=== PATIENT | male | born 1940 | race Caucasian/White ===

== ENCOUNTER → 2017-04-27 | Outpatient (CLI) | payer MEDICARE, OTHER ==
[~2017-04-27] MED LIST: ASPIRINEC PO; CIPRO PO; COLACE PO; COREG6.25 MG PO; DHA; ELIQUIS5 MG PO; GLUCOSAMINE CHON; LORTAB 7.5-5001 TAB PO; MULTI-DAY1 TAB PO; MULTI-VIT/MIN P1 TAB PO; PRILOSEC PO; UROXATRAL10 MG PO; VIT C PO; VITAMIN D 4001 UDTAB PO; ZESTRIL10 M1 PO; ZOCOR PO
--- NOTE | ~2017-04-27 | MR17 ---
[facility] A Service of [facility] & [facility] RADIOLOGY TEXT RESULTS PATIENT: JAYDON LINO LOCATION: [facility] : 38 UNIT #: [id number] AGE: [address]: Jung Rodgers MD SEX: M ORDER DR: [id number] [address] [address] [id number] O MR#: [id number] Acc #: [id number] NAME: JAYDON LINO : 1940 SEX: M STUDY DATE/TIME: 04/27/2017 14:10 UNIT: [facility] ROOM: STUDY DESCRIPTION: MR Brain WWo Contrast Attending Physician: Jung Rodgers M.D. Referring Physician: Jung Rodgers M.D. Ordering Physician: Jung Rodgers M.D. Primary Care Physician: Jung Rodgers M.D. MRI CENTER REPORT This report is preliminary unless electronic signature is present. EXAM MRI of the brain with and without contrast dated 04/27/2017. COMPARISON None. HISTORY Increased vertigo for the last 6-8 weeks, especially when patient is supine. FINDINGS Multisequence multiplanar imaging of the brain was obtained with and without contrast. GFR measured greater than 60. 19 mL of MultiHance was administered intravenously. No acute stroke, space-occupying intracranial mass, mass effect, midline shift or hydrocephalus. There are scattered hyperintense T2-signal lesions noted in the brain involving the periventricular (particularly biparietal) and subcortical (particularly bifrontal) white matter. No acute stroke, enhancing solid mass, hydrocephalus, hemorrhage or midline shift. Vascular flow voids of the major cerebral arteries and dural venous sinuses are patent without occlusion. Thick slices through the sella with the pituitary gland, pineal region are unremarkable. Mild disc bulge is noted at C3-4 with mild mass effect on the adjacent thecal sac. S-shaped nasal septal deviation is noted with mild paranasal sinus mucosal thickening. Status post bilateral cataract surgery. IMPRESSION 1. No acute stroke, space-occupying intracranial mass, mass effect, midline shift or hydrocephalus. 2. Scattered few hyperintense T2-signal lesions are noted in the white matter, likely related to minimal chronic microvascular ischemic change or migraine based on age and statistics. [facility] A Service of [facility] & [facility] RADIOLOGY TEXT RESULTS PATIENT: JAYDON LINO [id number] : 38 UNIT #: [id number] AGE: [address]: Jung Rodgers MD SEX: M ORDER DR: Dictated by... Bryan Metcalf M.D. THIS IS AN ELECTRONICALLY VERIFIED REPORT Bryan Metcalf M.D. at 04/28/2017 4:29 PM CPR/pc TD: 04/28/2017 12:02 JOB #: [id number] MRI CENTER REPORT Page 1 of 1
--- NOTE | ~2017-04-27 | US37 ---
[facility] A Service of [facility] RADIOLOGY TEXT RESULTS PATIENT: JAYDON LINO [id number] [birth year] UNIT #: [id number] AGE: [address]: Jung Rodgers MD SEX: M ORDER DR: [id number] [address] [address] [id number] O MR#: [id number] Acc #: [id number] NAME: JAYDON LINO : 1940 SEX: M STUDY DATE/TIME: 04/27/2017 14:40 UNIT: [facility] ROOM: STUDY DESCRIPTION: US Carotid W/Doppler Bilateral Attending Physician: Jung Rodgers M.D. Referring Physician: Jung Rodgers M.D. Ordering Physician: Jung Rodgers M.D. Primary Care Physician: Jung Rodgers M.D. MEDICAL IMAGING REPORT This report is preliminary unless electronic signature is present. DATE OF EXAMINATION 04/27/2017 EXAMINATION Bilateral carotid Duplex. CLINICAL HISTORY Vertigo. FINDINGS There is patent flow seen throughout the right common carotid, internal carotid and external carotid arteries. At the right carotid bifurcation, there is homogeneous irregular echogenic plaque, extending to the internal and external carotid arteries. The right common carotid artery peak velocity is 67 cm/sec. The right internal carotid artery peak systolic over end diastolic velocities are: Proximal 51/13 cm/sec, mid 65/19 cm/sec, distal 70/21 cm/sec. The right external carotid artery peak velocity is 66 cm/sec and vertebral artery 41 cm/sec. The right ICA:CCA ratio is 1.0. There is patent flow seen throughout the left common carotid, internal carotid and external carotid arteries. There is homogeneous, irregular appearing plaque seen in the left common carotid artery. The left carotid bifurcation appears to be heterogeneous, and irregular plaque which extends into the internal and external carotid arteries. The left common carotid artery peak velocity is 60 cm/sec, the left internal carotid artery peak systolic over end-diastolic velocities are: Proximal 46/14 cm/sec, mid 51/13 cm/sec, distal 51/19 cm/sec. The left external carotid artery peak velocity is 56 cm/sec, and vertebral artery 31 cm/sec. The left ICA:CCA ratio is 0.8. IMPRESSION 1. There is mild atherosclerosis of the right carotid artery, which is STS. [facility] A Service of [facility] RADIOLOGY TEXT RESULTS PATIENT: JAYDON LINO [id number] 38 UNIT #: [id number] AGE: [address]: Jung Rodgers MD SEX: M ORDER DR: not hemodynamically significant by duplex criteria (less than 50%). 2. There is mild atherosclerosis of the left carotid artery, which is not hemodynamically significant by duplex criteria (less than 50%). 3. Vertebral flow is antegrade bilaterally. Dictated by... Luis Miguel Orantes M.D. THIS IS AN ELECTRONICALLY VERIFIED REPORT Luis Miguel Orantes M.D. at 04/28/2017 9:07 AM ROSEANNA/andres TD: 04/27/2017 19:06 JOB #: [id number] MEDICAL IMAGING REPORT Page 1 of 1
[2017-04-27 16:10] LABS: POC - CREATININE 1.14 mg/dL (0.64-1.27); POC - GFR >60.0 mL/min (>60)
== END | disposition home or self-care (01) ==
LOC: SMRI 13:09
PROVIDERS: Family Medicine
DX: R42 Dizziness and giddiness (principal); I65.23 Occlusion and stenosis of bilateral carotid arteries
CPT/HCPCS: 70553; 82565; 93880; A9581